=== PATIENT | male | born 1935 | race Caucasian/White ===

== ENCOUNTER 2022-05-21 23:47 | Inpatient (IN) | payer MEDICARE ==
[2022-05-22 02:20] VITALS: BMI 31.4
[2022-05-22] MEDS ORDERED: Acetaminophen 325 MG TAB PO PRN (02:36)
[2022-05-22] MEDS ORDERED: Ondansetron PF 4 MG/2 ML Vial IVP PRN (02:36)
[2022-05-22] MEDS ORDERED: Ondansetron ODT 4 MG TAB PO PRN (02:36)
[2022-05-22] MEDS ORDERED: Acetaminophen 650 MG Suppository PR PRN (02:36)
[2022-05-22] MEDS ORDERED: Montelukast Sodium 10 mg Tablet PO PRN (03:15)
[2022-05-22 05:23] LABS: Lactic Acid 1.2 mmol/L (0.5-2.2)
[2022-05-22 05:33] LABS: Band 21 % (5-11); Hemoglobin 9.2 g/dL (14.0-18.0); Hypochromia SLIGHT = 6-15 cells (100X) (0-5/hpf); Lymphocytes 14 % (21-51); MDiff Complete? YES; Mean Corpuscular HGB CONC 33.4 g/dL (32.0-36.0); Mean Corpuscular Volume 89.9 fl (78.0-98.0); Mean Platelet Volume 6.5 fL (7.4-10.4); Monocytes 12 % (0-10); Neutrophil 52 % (42-75); Platelet Count 118 10x3/uL (130-400); Platelet Morphology Comment Appears Decreased; RBC Distribution Width 13.3 % (11.5-14.5); Reactive Lymphocytes 1 % (0-10); Red Blood Cell (RBC) Count 3.07 mill/uL (4.70-6.10); White Blood Cell (WBC) Count 13.7 10x3/uL (4.8-10.8)
[2022-05-22 05:36] LABS: Anion Gap 12 mmol/L (10-20); BUN (Urea Nitrogen) 24 mg/dL (8.4-25.7); Calc. Creatinine Clearance 63 mL/min (70-130); Carbon Dioxide 21 mmol/L (23-31); Chloride 105 mmol/L (98-107); Estimated GFR 56; Glucose 104 mg/dL (83-110); Potassium 4.2 mmol/L (3.5-5.1); Sodium 134 mmol/L (136-145)
[2022-05-22] MEDS: Cholecalciferol 1,000 UNITS (25 MCG) TAB PO SCH (09:20)
[2022-05-22] MEDS: Vit A,C & E/Lutein/Minerals Tablet PO SCH (09:20)
[2022-05-22] MEDS: Rosuvastatin 20 MG TAB PO SCH (09:20)
[2022-05-22] MEDS: Multivitamin w/Zinc Stress 1 TAB PO SCH (09:21)
[2022-05-22] MEDS: Dronedarone HCl 400 MG TAB PO SCH ×2 (09:21→18:13)
[2022-05-22] MEDS: Tamsulosin HCl 0.4 MG CAP PO SCH (09:21)
[2022-05-22] MEDS: Famotidine 20 MG TAB PO SCH (09:21)
[2022-05-22] MEDS: Aspirin 325 mg Enteric Coated Tablet PO SCH (09:21)
[2022-05-22] MEDS: Finasteride 5 MG TAB PO SCH (09:21)
[2022-05-22] MEDS ORDERED: Vancomycin 1.5 GM in Premix Bag 1 BAG IVPB SCH (10:15)
[2022-05-22] MEDS: Cefepime 2 GM in Sodium Chloride 0.9% 100 ML IVPB SCH ×2 (11:14→18:14)
[2022-05-22] MEDS ORDERED: VANCOMYCIN 2 GRAM/500 ML BAG 2 GM in Premix Bag 1 BAG IVPB SCH (12:00)
[2022-05-22] MEDS ORDERED: Gentamicin Sulfate 100 MG in Premix Bag 1 BAG IVPB SCH (14:00)
[2022-05-22] MEDS ORDERED: Ipratropium/Albuterol 3 ML NEB NEB PRN (21:08)
[2022-05-22] MEDS ORDERED: Gabapentin 300 MG CAP PO SCH (22:30)
[2022-05-23] MEDS: Cefepime 2 GM in Sodium Chloride 0.9% 100 ML IVPB SCH ×3 (03:56→18:06)
[2022-05-23 05:16] LABS: #Eosinphils 0.1 thou/uL (0.0-0.7); #Lymphocytes 0.9 thou/uL (1.20-3.40); #Monocytes 0.6 thou/uL (0.11-0.59); #Neutrophils 5.9 thou/uL (1.40-6.50); %Eosinophils 1.3 % (0.0-10.0); %Lymphocytes 11.6 % (21.0-51.0); %Monocytes 8.3 % (0.0-10.0); %Neutrophils 78.8 % (42.0-75.0); Hemoglobin 9.9 g/dL (14.0-18.0); Mean Corpuscular HGB CONC 35.5 g/dL (32.0-36.0); Mean Corpuscular Volume 90.1 fl (78.0-98.0); Mean Platelet Volume 6.5 fL (7.4-10.4); Platelet Count 95 10x3/uL (130-400); RBC Distribution Width 13.3 % (11.5-14.5); Red Blood Cell (RBC) Count 3.09 mill/uL (4.70-6.10); White Blood Cell (WBC) Count 7.5 10x3/uL (4.8-10.8)
[2022-05-23 05:42] LABS: Anion Gap 13 mmol/L (10-20); BUN (Urea Nitrogen) 18 mg/dL (8.4-25.7); Calc. Creatinine Clearance 87 mL/min (70-130); Calcium 8.4 mg/dL (7.8-10.44); Carbon Dioxide 18 mmol/L (23-31); Chloride 107 mmol/L (98-107); Estimated GFR 82; Glucose 103 mg/dL (83-110); Potassium 3.8 mmol/L (3.5-5.1); Sodium 134 mmol/L (136-145)
[2022-05-23] MEDS: Finasteride 5 MG TAB PO SCH (08:16)
[2022-05-23] MEDS: Dronedarone HCl 400 MG TAB PO SCH ×2 (08:16→16:50)
[2022-05-23] MEDS: Aspirin 325 mg Enteric Coated Tablet PO SCH (08:16)
[2022-05-23] MEDS: Rosuvastatin 20 MG TAB PO SCH (08:17)
[2022-05-23] MEDS: Tamsulosin HCl 0.4 MG CAP PO SCH (08:17)
[2022-05-23] MEDS: Famotidine 20 MG TAB PO SCH (08:17)
[2022-05-23] MEDS: Cholecalciferol 1,000 UNITS (25 MCG) TAB PO SCH (08:22)
[2022-05-23] MEDS: Multivitamin w/Zinc Stress 1 TAB PO SCH (08:22)
[2022-05-23] MEDS: Vit A,C & E/Lutein/Minerals Tablet PO SCH (08:22)
[2022-05-23] MEDS: ACETAMINOPHEN PO SCH ×2 (11:54→11:55)
[2022-05-23] MEDS: CHONDR SU A SOD PO SCH (11:55)
[2022-05-23] MEDS: GLUCOSAMINE PO SCH (11:55)
[2022-05-23] MEDS ORDERED: Vancomycin 1.5 GRAM/300 ML BAG 1.5 GM in Premix Bag 1 BAG IVPB SCH (12:00)
[2022-05-23] MEDS ORDERED: Gabapentin 300 MG CAP PO SCH (21:00)
[2022-05-24] MEDS: Cefepime 2 GM in Sodium Chloride 0.9% 100 ML IVPB SCH (03:23)
[2022-05-24] MEDS: Dronedarone HCl 400 MG TAB PO SCH ×2 (08:08→16:30)
[2022-05-24] MEDS: Cholecalciferol 1,000 UNITS (25 MCG) TAB PO SCH (08:09)
[2022-05-24] MEDS: Famotidine 20 MG TAB PO SCH (08:09)
[2022-05-24] MEDS: Rosuvastatin 20 MG TAB PO SCH (08:09)
[2022-05-24] MEDS: Tamsulosin HCl 0.4 MG CAP PO SCH (08:09)
[2022-05-24] MEDS: Vit A,C & E/Lutein/Minerals Tablet PO SCH (08:10)
[2022-05-24] MEDS: Multivitamin w/Zinc Stress 1 TAB PO SCH (08:10)
[2022-05-24] MEDS: Aspirin 325 mg Enteric Coated Tablet PO SCH (08:10)
[2022-05-24] MEDS: Finasteride 5 MG TAB PO SCH (08:10)
[2022-05-24 12:44] VITALS: TEMP 97.9
[2022-05-24] MEDS: Oxacillin 2 GM in Sodium Chloride 0.9% 100 ML IVPB SCH ×2 (13:24→16:33)
[2022-05-24 17:35] VITALS: BP 121/58
== END 2022-05-24 18:30 | disposition short-term general hospital (02) | DRG 871 ==
LOC: 2NO 23:47
PROVIDERS: ADMIT Family Medicine; ATTEND Family Medicine
DX: A41.9 Sepsis, unspecified organism (principal); R65.21 Severe sepsis with septic shock; M86.172 Other acute osteomyelitis, left ankle and foot; I50.32 Chronic diastolic (congestive) heart failure; I48.91 Unspecified atrial fibrillation; J45.909 Unspecified asthma, uncomplicated; E66.9 Obesity, unspecified; Z95.2 Presence of prosthetic heart valve; Z95.0 Presence of cardiac pacemaker; Z88.1 Allergy status to other antibiotic agents; Z88.8 Allergy status to other drugs, medicaments and biological substances; Z79.82 Long term (current) use of aspirin; Z79.899 Other long term (current) drug therapy; Z68.31 Body mass index [BMI] 31.0-31.9, adult
CPT/HCPCS: 36415; 80048; 83605; 84145; 85025; 85652; 86140; 87040; 87070; 87077; 87186; 87205; 93306; 94640; J0692; J1580; J2405; J2700; J3370; J3490; J7620